=== PATIENT | female | born 1960 | race Caucasian/White ===

== ENCOUNTER → 2018-11-02 | Outpatient (CLI) | payer BC ==
[~2018-11-02] MED LIST: ISOVUE-370 76% 100ML VIAL (Q9967) As Ordered ONE
--- NOTE | 2018-11-02 13:54 | REP ---
CT NECK WITH CONTRAST: HISTORY: Pharyngeal neoplasm. CONTRAST: Isovue 370, 75 mL. A mass is present arising from the left lateral wall of the nasopharynx. There is inferior extension into the left tonsil and soft palate. There is lateral extension into the left medial and lateral pterygoid muscles. There is anterior extension into the left buccinator space. There is superior extension into the left infratemporal fossa and pterygopalatine fossa. There is partial erosion of the posterior wall of the left maxillary sinus with extension into the posterior left maxillary sinus. There is anterior and superior extension into the posterior left nasal passage. There is partial erosion of the anterior wall of the left sphenoid sinus with extension into the left sphenoid sinus. There is mild mass effect on the nasopharynx. Mucosal thickening is present in the left middle ear cavity and mastoid air cells. Mucosal thickening is present in the left ethmoid, sphenoid, and frontal sinuses. 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 There is mild mass effect on the nasopharynx. Electronically Signed by Camacho Coronado MD 11/02/2018 06:03 P
== END ==
LOC: M RAD 10:56
PROVIDERS: ATTEND Otolaryngology
DX: D37.05 Neoplasm of uncertain behavior of pharynx (principal)
CPT/HCPCS: 70491; Q9967

== ENCOUNTER → 2023-05-26 | Outpatient (CLI) | payer MEDICARE | LOC: M RAD 14:08 | PROVIDERS: ATTEND Physician Assistant | DX: J32.8 Other chronic sinusitis (principal); J34.89 Other specified disorders of nose and nasal sinuses; J32.0 Chronic maxillary sinusitis ==

== ENCOUNTER 2023-06-01 07:44 | Day surgery (SDC) | payer MEDICARE ==
[~2023-06-01] VITALS: Ht 165.1 cm; Wt 60.0 kg
[~2023-06-01 07:44] MED LIST changes: +ACYC1TAB PO; +DAPS10TA PO; +ESTR62CR PV; -ISOVUE-370 76% 100ML VIAL (Q9967) As Ordered ONE; +TIMO5DRO4 OU
[2023-06-01] MEDS ORDERED: MIDAZOLAM INJ 2MG/2ML VIAL As Ordered ONE (08:30)
[2023-06-01] MEDS ORDERED: KETOROLAC 60MG 2ML VIAL As Ordered ONE (08:31)
[2023-06-01] MEDS ORDERED: ACETAMINOPHEN 1000MG 100ML IV BAG As Ordered ONE (08:31)
[2023-06-01] MEDS ORDERED: LIDOCAINE 2% 100MG/5ML SDV (FOR ANES.) As Ordered ONE (08:31)
[2023-06-01] MEDS ORDERED: fentaNYL 100 MCG/2 ML INJECTION As Ordered ONE (08:31)
[2023-06-01] MEDS ORDERED: ONDANSETRON 4MG 2ML VIAL As Ordered ONE (08:31)
[2023-06-01] MEDS ORDERED: propofoL 200 MG/20 ML VIAL As Ordered ONE (08:33)
[2023-06-01] MEDS ORDERED: LR 1,000 ML IV SCH ×2 (08:55→11:10)
[2023-06-01] MEDS: ceFAZolin SOD 2 GM in IV 1 EA IV ONE (10:01)
[2023-06-01] MEDS ORDERED: diphenhydrAMINE 50MG/ML VIAL As Ordered ONE (10:04)
[2023-06-01] MEDS ORDERED: ePHEDrine SULFATE 25 MG/5 ML(5MG/ML) SYRINGE As Ordered ONE (10:15)
[2023-06-01] MEDS: LIDOCAINE W/EPINEPHRINE 1% 20ML VIAL As Ordered ONE (10:58)
[2023-06-01] MEDS ORDERED: fentaNYL 100 MCG/2 ML INJECTION IV PRN (11:10)
[2023-06-01] MEDS ORDERED: ONDANSETRON 4MG 2ML VIAL IV PRN (11:10)
[2023-06-01] MEDS ORDERED: HYDROMORPHONE HCL 0.5 MG/ 0.5 ML SYRINGE IV PRN (11:10)
[2023-06-01] MEDS ORDERED: PERCOCET PO (11:11)
[2023-06-01] MEDS: oxyCODONE 5MG TAB PO PRN (11:36)
[2023-06-01 12:00] VITALS: BP 108/59; TEMP 97; O2SAT 95
== END 2023-06-01 12:30 | disposition home or self-care (01) ==
LOC: M SDC 07:44
PROVIDERS: ATTEND Orthopaedic Surgery Hand Surgery
DX: G56.21 Lesion of ulnar nerve, right upper limb (principal); Z85.6 Personal history of leukemia; Z92.21 Personal history of antineoplastic chemotherapy; Z79.899 Other long term (current) drug therapy; Z90.710 Acquired absence of both cervix and uterus; Z94.84 Stem cells transplant status; Z88.0 Allergy status to penicillin; Z88.8 Allergy status to other drugs, medicaments and biological substances; Z88.2 Allergy status to sulfonamides; Z88.1 Allergy status to other antibiotic agents
CPT/HCPCS: 64718; 93005; J0131; J0690; J1100; J1200; J1885; J2250; J2405; J3010